=== PATIENT | female | born 1995 | race Caucasian/White ===

== ENCOUNTER 2018-04-10 00:42 | Emergency (ER) | payer SELFPAY ==
[~2018-04-10] VITALS: Ht 160 cm; Wt 64.4 kg
[2018-04-10 00:51] VITALS: Ht 160 cm; Wt 64.4 kg
[2018-04-10 01:25] VITALS: BP 131/80
== END 2018-04-10 01:25 | disposition home or self-care (01) ==
LOC: ED 00:42
DX: J02.9 Acute pharyngitis, unspecified (principal); J45.909 Unspecified asthma, uncomplicated
CPT/HCPCS: J7512

== ENCOUNTER 2018-05-09 10:56 | Emergency (ER) | payer SELFPAY ==
[~2018-05-09] VITALS: Ht 160 cm; Wt 65.3 kg
[2018-05-09 11:06] VITALS: BP 143/74; Ht 160 cm; Wt 65.3 kg
== END 2018-05-09 11:49 | disposition home or self-care (01) ==
LOC: ED 10:56
DX: J03.90 Acute tonsillitis, unspecified (principal)

== ENCOUNTER 2018-08-10 23:06 | Emergency (ER) | payer SELFPAY ==
[~2018-08-10] VITALS: Ht 160 cm; Wt 60.3 kg
[2018-08-10 23:11] VITALS: Ht 160 cm; Wt 60.3 kg
[2018-08-10 23:51] VITALS: BP 143/60
== END 2018-08-10 23:51 | disposition home or self-care (01) ==
LOC: ED 23:06
DX: J03.90 Acute tonsillitis, unspecified (principal); B37.9 Candidiasis, unspecified

== ENCOUNTER 2020-03-28 16:39 | Emergency (ER) | payer MEDICAID, SELFPAY ==
[~2020-03-28] VITALS: Ht 160 cm; Wt 63.5 kg
[2020-03-28 16:40] VITALS: Ht 160 cm; Wt 63.5 kg
[2020-03-28 17:50] LABS: microscopic required? YES; urine erythrocyte 3+ (NEGATIVE)
[2020-03-28 17:57] LABS: BASOPHIL % 0.3 % (0-2); PLATELET COUNT 207 x10^3mcL (130-400)
[2020-03-28 19:57] VITALS: BP 105/69
== END 2020-03-28 19:57 | disposition home or self-care (01) ==
LOC: ED 16:39
PROVIDERS: Emergency Medicine
DX: O20.0 Threatened abortion (principal); O99.511 Diseases of the respiratory system complicating pregnancy, first trimester; Z3A.10 10 weeks gestation of pregnancy
CPT/HCPCS: Q0092

== ENCOUNTER 2020-04-17 15:53 | Emergency (ER) | payer MEDICAID ==
[~2020-04-17] VITALS: Ht 160 cm; Wt 68.9 kg
[2020-04-17 16:14] VITALS: Ht 160 cm; Wt 68.9 kg
[2020-04-17 17:18] LABS: BASOPHIL % 0.4 % (0-2); PLATELET COUNT 187 x10^3mcL (130-400); RED CELL DISTRIBUTION WIDTH 14.9 % (11.5-14.5)
[2020-04-17 19:10] VITALS: BP 118/72
== END 2020-04-17 19:00 | disposition home or self-care (01) ==
LOC: ED 15:53
PROVIDERS: Emergency Medicine
DX: O20.0 Threatened abortion (principal); J45.909 Unspecified asthma, uncomplicated; Z98.890 Other specified postprocedural states
CPT/HCPCS: Q0092

== ENCOUNTER 2020-05-24 14:20 | Emergency (ER) | payer SELFPAY ==
[~2020-05-24] VITALS: Ht 160 cm; Wt 70.3 kg
[2020-05-24 14:55] VITALS: Ht 160 cm; Wt 70.3 kg
[2020-05-24 16:33] VITALS: BP 109/64
== END 2020-05-24 16:33 | disposition home or self-care (01) ==
LOC: ED 14:20
DX: R51.9 Headache, unspecified (principal); J45.909 Unspecified asthma, uncomplicated
CPT/HCPCS: J2765; J7030

== ENCOUNTER 2020-05-26 17:08 | Emergency (ER) | payer SELFPAY ==
[~2020-05-26] VITALS: Ht 160 cm; Wt 68.9 kg
[2020-05-26 17:45] VITALS: Ht 160 cm; Wt 68.9 kg
[2020-05-26 20:46] VITALS: BP 119/82
== END 2020-05-26 20:46 | disposition home or self-care (01) ==
LOC: ED 17:08
DX: O26.892 Other specified pregnancy related conditions, second trimester (principal); R10.30 Lower abdominal pain, unspecified; J45.909 Unspecified asthma, uncomplicated; Z3A.17 17 weeks gestation of pregnancy
CPT/HCPCS: Q0092